=== PATIENT | female | born 1950 | race African-American/Black ===

== ENCOUNTER 2017-07-29 16:22 | Observation (INO) | payer MEDICARE, MEDICAID ==
[2017-07-29] MEDS ORDERED: Aspirin Low Dose CHEW TAB* 81 MG PO ONE (16:42)
--- NOTE | 2017-07-29 17:12 | RAD ---
Indication: LEFT chest pain, shortness of breath. Comparison: March 07, 2017 chest radiograph and January 09, 2017 Technique: Upright AP 1650 hours Report: No pulmonary infiltrate, focal pulmonary lesion, pleural effusion, pneumothorax. The heart, pulmonary vasculature, and mediastinal contours are unremarkable. Thoracic degenerative spondylosis with prominent RIGHT side vertebral endplate osteophytes. IMPRESSION: No evidence for acute intrathoracic disease.
[2017-07-29 17:45] LABS: Hematocrit 40 % (35-47); Hemoglobin 13.4 g/dl (12.0-16.0); Mean Corpuscular HGB Conc 33 g/dl (31-36); Mean Corpuscular Hemoglobin 27 pg (27-31); Mean Corpuscular Volume 81 fL (80-97); Mean Platelet Volume 8 um3 (7.4-10.4); Red Blood Count 5.01 10^6/ul (4.0-5.4); Red Cell Distribution Width 15 % (10.5-15); White Blood Count 23.3 10^3/ul (3.5-10.8)
[2017-07-29 17:51] LABS: Add Diff/Slide Review? Slide Review Added; Comments Flag Yes
[2017-07-29 18:01] LABS: Albumin 3.8 g/dL (3.2-5.2); BUN/Creatinine Ratio 14.9 (8-20); Calcium 9.1 mg/dL (8.6-10.3); EGFR African American 83.5 (>60); EGFR Non-African American 64.9 (>60); Globulin 2.8 g/dL (2-4); Potassium 3.7 mmol/L (3.5-5.0); Total Bilirubin 0.3 mg/dL (0.2-1.0); Total Protein 6.6 g/dL (6.4-8.9)
[2017-07-29] MEDS ORDERED: Nitroglycerin TAB 0.4 MG* 0.4 MG TAB SL ONE (18:33)
[2017-07-29] MEDS ORDERED: Iohexol 350* (CONTRAST) 500 ML MDV IV ONE (18:58)
--- NOTE | 2017-07-29 19:44 | RAD ---
INDICATION: LEFT chest pain, shortness of breath. History of leukemia. Assess for pulmonary embolism. COMPARISON: July 29, 2017 chest radiograph and January 09, 2017 CT. TECHNIQUE: Multidetector CT images were obtained from the lung apices to the upper abdomen with 83 mL Omnipaque 350 IV contrast. Pulmonary angiogram protocol. Multiplanar reformation including with maximum intensity projection. REPORT: Mild bilateral subsegmental atelectasis. Negative for focal pulmonary lesions or pleural effusions. Negative for pneumothorax. 1.1 cm short axis subcarinal lymph node without change. Additional smaller mediastinal and hilar lymph nodes. Bilateral hilar lymph nodes measuring up to 1.6 cm short axis on the RIGHT and 1.1 cm short axis on the LEFT without significant change. Negative for cardiomegaly or pericardial effusion. Normal diameter thoracic aorta with mild atherosclerotic plaque. No filling defects are identified from the main to the subsegmental pulmonary arteries to indicate presence of a pulmonary embolism. Images through the upper abdomen demonstrate normal size spleen. No upper abdominal lymphadenopathy evident. No suspicious thoracic fracture or suspicious osseous lesions evident. IMPRESSION: 1. Negative for pulmonary embolism. 2. Mild bilateral subsegmental atelectasis. 3. Unchanged mildly enlarged subcarinal lymph node and bilateral axillary level lymph nodes.
[2017-07-29] MEDS ORDERED: Acetaminophen TAB* 325 MG PO PRN (20:26)
[2017-07-29] MEDS ORDERED: Morphine INJ* 4 MG/ML 1 ML CARPUJECT IV PRN (21:32)
[2017-07-29] MEDS ORDERED: Melatonin (NF) 3 MG TAB PO PRN (21:32)
[2017-07-29] MEDS ORDERED: Albuterol 2.5 MG/3 ML NEB.SOL* (0.083%) INH PRN (21:32)
[2017-07-29] MEDS ORDERED: Nicotine Inhaler* 10 MG AMP INH PRN (21:32)
[2017-07-29] MEDS ORDERED: traMADol TAB* 50 MG PO PRN (21:33)
[2017-07-29] MEDS ORDERED: Ondansetron INJ* 2 MG/ML VIAL IV PRN (21:33)
[2017-07-29] MEDS ORDERED: NS 0.9% 1000 ML* 1,000 ML IV SCH (21:45)
[2017-07-30] MEDS ORDERED: Potassium Chlor TAB* 20 MEQ TAB.ER PO ONE (05:12)
[2017-07-30 05:45] LABS: Hematocrit 38 % (35-47); Hemoglobin 12.4 g/dl (12.0-16.0); Mean Corpuscular HGB Conc 33 g/dl (31-36); Mean Corpuscular Hemoglobin 26 pg (27-31); Mean Corpuscular Volume 80 fL (80-97); Mean Platelet Volume 8 um3 (7.4-10.4); Red Blood Count 4.75 10^6/ul (4.0-5.4); Red Cell Distribution Width 15 % (10.5-15); White Blood Count 17.8 10^3/ul (3.5-10.8)
[2017-07-30 05:50] LABS: Comments Flag Yes
[2017-07-30 05:51] LABS: Add Diff/Slide Review? Slide Review Added
[2017-07-30] MEDS ORDERED: Omeprazole CAP* 20 MG PO SCH (06:00)
[2017-07-30 06:03] LABS: Magnesium 1.9 mg/dL (1.9-2.7)
[2017-07-30 06:51] LABS: Eosinophils % 1 % (0-6); Neutrophil % 32 % (38-83); RBC Morphology Normal (Normal); Reactive Lymph % 19 % (0-6)
[2017-07-30 06:52] LABS: EBV Response NO
[2017-07-30 06:56] LABS: Manual Entry Verification CAR0052; Mono Internal Control QC Line Present
--- NOTE | 2017-07-30 07:31 | HP ---
H&P (Free Text) History and Physical: PCP: Mac Alvarez MD Date/Time of Evaluation: 07/29/20172024 CC: chest pain HPI: Mrs Morgan is a 66YO female HX leukemia, HTN, & asthma who awoke this AM due to moderate non-exertional sharp L shoulder pain radiating into the central chest associated wtih SOB, nausea without vomiting, sweats, palpitations, and light-headedness. She denies F/C, cough, congestion, injury, or change in activity. She refused her families encouragement to come for evaluation for several hours before finally conceding. Currently she denies symptoms. She denies exacerbating/alleviating factors. PMedHx leukemia asthma HTN Ambulatory Orders Albuterol HFA INHALER* [Ventolin HFA Inhaler*] 1 - 2 puff INH Q4H PRN #1 mdi [place] Inhaler 2 puff INH DAILY 07/29/17 traMADol TAB* [Ultram*] 50 mg PO Q6HR PRN 07/29/17 Allergies No Known Allergies Allergy (Verified 03/07/17 07:45) PSurgHx R rotator cuff repair L ankle surgery R ACL repair SocHx: 1/4PPD cigarettes, 1/2 pint liquor weekly, denies recreational drugs; lives with ; full code status FamHx: Mother: alive in her 90s; Father: passed in his 80s of uncertain cause ROS: as above, otherwise reviewed and all were negative Constitutional: NAD, normally developed, obese black female vitals: Vital Signs Temp 36.4 C 07/30/17 03:05 Pulse 58 07/30/17 03:05 Resp 16 07/30/17 03:05 BP 132/56 07/30/17 03:05 Pulse Ox 99 07/30/17 03:05 Intake & Output 07/29/17 07/29/17 07/30/17 11:59 23:59 11:59 Intake Total 0 Output Total 0 Balance 0 Weight 106.458 kg Intake: Oral 0 Output: Urine 0 Other: # Bowel Movements 0 HEENM: atraumatic; sclera/conjunctiva: non-icteric/clear; hearing: clinically intact; oropharynx: clear, mucosa moist Neck: soft tissue: non-tender; thyroid: normal Pulmonary: clear to auscultation bilaterally, good aeration, no accessory muscle use CV: RR/RR, normal S1S2, no carotid bruit, no jugular venous distention, 2+ B DP/ PT, trace BLE edema Abdominal: soft, non-distended, non-tender, no rebound/guarding/rigidity, normoactive bowel sounds, no hepatosplenomegaly or masses, no costovertebral angle tenderness Musculoskeletal: general: grossly intact, no palpable tenderness Integumental: normal appearance and texture of exposed skin Psychiatric orientation: AA&O to PPS affect: calm mood: cooperative eye contact: fair content: mostly reliable responses: not forthcoming insight: fair to poor Testing: Lab Results 07/29/17 07/29/17 07/29/17 Range/Units 17:36 17:36 17:36 WBC 23.3 H (3.5-10.8) 10^3/ul RBC 5.01 (4.0-5.4) 10^6/ul Hgb 13.4 (12.0-16.0) g/dl Hct 40 (35-47) % MCV 81 (80-97) fL MCH 27 (27-31) pg MCHC 33 (31-36) g/dl RDW 15 (10.5-15) % Plt Count 287 (150-450) 10^3/ul MPV 8 (7.4-10.4) um3 Neut % (Auto) 32.3 L (38-83) % Lymph % (Auto) 60.5 H (25-47) % Costilla % (Auto) 5.7 (1-9) % Eos % (Auto) 1.1 (0-6) % Baso % (Auto) 0.4 (0-2) % Absolute Neuts (auto) 7.5 (1.5-7.7) 10^3/ul Absolute Lymphs (auto) 14.1 H (1.0-4.8) 10^3/ul Absolute Monos (auto) 1.3 H (0-0.8) 10^3/ul Absolute Eos (auto) 0.2 (0-0.6) 10^3/ul Absolute Basos (auto) 0.1 (0-0.2) 10^3/ul Absolute Nucleated RBC 0.03 10^3/ul Neutrophils % (38-83) % Lymphocytes % (25-47) % Reactive Lymphs % (0-6) % Monocytes % (0-13) % Eosinophils % (0-6) % Nucleated RBC % 0.1 Normal RBC Morphology (Normal) Sodium 138 (133-145) mmol/L Potassium 3.7 (3.5-5.0) mmol/L Chloride 105 (101-111) mmol/L Carbon Dioxide 26 (22-32) mmol/L Anion Gap 7 (2-11) mmol/L BUN 13 (6-24) mg/dL Creatinine 0.87 (0.51-0.95) mg/dL Est GFR ( Amer) 83.5 (>60) Est GFR (Non-Af Amer) 64.9 (>60) BUN/Creatinine Ratio 14.9 (8-20) Glucose 106 H (70-100) mg/dL Lactic Acid 0.7 (0.5-2.0) mmol/L Calcium 9.1 (8.6-10.3) mg/dL Magnesium (1.9-2.7) mg/dL Total Bilirubin 0.30 (0.2-1.0) mg/dL AST 13 (13-39) U/L ALT 5 L (7-52) U/L Alkaline Phosphatase 115 H (34-104) U/L Troponin I 0.00 (<0.04) ng/mL Total Protein 6.6 (6.4-8.9) g/dL Albumin 3.8 (3.2-5.2) g/dL Globulin 2.8 (2-4) g/dL Albumin/Globulin Ratio 1.4 (1-3) Monoscreen (Negative) 07/29/17 07/30/17 07/30/17 Range/Units 20:00 04:49 04:49 WBC 17.8 H (3.5-10.8) 10^3/ul RBC 4.75 (4.0-5.4) 10^6/ul Hgb 12.4 (12.0-16.0) g/dl Hct 38 (35-47) % MCV 80 (80-97) fL MCH 26 L (27-31) pg MCHC 33 (31-36) g/dl RDW 15 (10.5-15) % Plt Count 250 (150-450) 10^3/ul MPV 8 (7.4-10.4) um3 Neut % (Auto) 31.9 L (38-83) % Lymph % (Auto) 60.9 H (25-47) % Costilla % (Auto) 5.7 (1-9) % Eos % (Auto) 1.3 (0-6) % Baso % (Auto) 0.2 (0-2) % Absolute Neuts (auto) 5.7 (1.5-7.7) 10^3/ul Absolute Lymphs (auto) 10.9 H (1.0-4.8) 10^3/ul Absolute Monos (auto) 1.0 H (0-0.8) 10^3/ul Absolute Eos (auto) 0.2 (0-0.6) 10^3/ul Absolute Basos (auto) 0 (0-0.2) 10^3/ul Absolute Nucleated RBC 0.01 10^3/ul Neutrophils % 32 L (38-83) % Lymphocytes % 44 (25-47) % Reactive Lymphs % 19 H (0-6) % Monocytes % 4 (0-13) % Eosinophils % 1 (0-6) % Nucleated RBC % 0.1 Normal RBC Morphology Normal (Normal) Sodium (133-145) mmol/L Potassium (3.5-5.0) mmol/L Chloride (101-111) mmol/L Carbon Dioxide (22-32) mmol/L Anion Gap (2-11) mmol/L BUN (6-24) mg/dL Creatinine (0.51-0.95) mg/dL Est GFR ( Amer) (>60) Est GFR (Non-Af Amer) (>60) BUN/Creatinine Ratio (8-20) Glucose (70-100) mg/dL Lactic Acid (0.5-2.0) mmol/L Calcium (8.6-10.3) mg/dL Magnesium 1.9 (1.9-2.7) mg/dL Total Bilirubin (0.2-1.0) mg/dL AST (13-39) U/L ALT (7-52) U/L Alkaline Phosphatase (34-104) U/L Troponin I 0.00 0.00 (<0.04) ng/mL Total Protein (6.4-8.9) g/dL Albumin (3.2-5.2) g/dL Globulin (2-4) g/dL Albumin/Globulin Ratio (1-3) Monoscreen Negative (Negative) ECG, personally reviewed: NSR rate 76, no ischemia CXR, personally reviewed: IMPRESSION: No evidence for acute intrathoracic disease. CTA chest, personally reviewed: IMPRESSION: 1. Negative for pulmonary embolism. 2. Mild bilateral subsegmental atelectasis. 3. Unchanged mildly enlarged subcarinal lymph node and bilateral axillary level lymph nodes. Impression: 66F chest pain for r/o ACS DIAGNOSIS & PLAN Primary chest pain r/o ACS : aspirin : telemetry : supplemental oxygen : trend troponin : chemical NST in AM : supportive care : consider cardiology consult pending above results Secondary leukemia : continue outpatient follow up asthma : PRN albuterol HTN : review meds once reconciled Admission Rational: CDU observation for r/o ACS DVTp: heparin SQ Code Status: full HCP:
[2017-07-30] MEDS ORDERED: Aspirin EC Low Dose* 81 MG TAB.EC PO SCH (09:00)
[2017-07-30] MEDS ORDERED: Regadenoson* 0.4 MG/5 ML SYRINGE ONE (09:31)
--- NOTE | 2017-07-30 11:01 | PN ---
Subjective Date of Service: 07/30/17 Interval History: Patient seen and examined at bedside. She denies any further CP or left shoulder pain overnight or this morning until after her stress test. She notes that she has both left and right shoulder discomfort after having to lay with her arms above her head. She has never had pain like this before. She can localize the pain. She reports lifting and bringing down a heavy box from her closet. No hx of chemotherapy or exposure to cardiotoxic medications. Denies any other complaints, other than feeling hungry. Family History: Unchanged from Admission Social History: Unchanged from Admission Past Medical History: Unchanged from Admission Objective Active Medications: Acetaminophen (Tylenol Tab*) 650 mg PO Q6H PRN PRN Reason: FEVER/PAIN Albuterol (Ventolin 2.5 Mg/3 Ml Neb.Leonie*) 2.5 mg INH Q2H PRN PRN Reason: SOB/WHEEZING Aspirin (Aspirin Ec Low Dose*) 81 mg PO DAILY [facility] Last Admin: 07/30/17 08:41 Dose: 81 mg Heparin Sodium (Porcine) (Heparin Vial(*)) 5,000 units SUBCUT Q8HR [facility] Sodium Chloride (Ns 0.9% 1000 Ml*) 1,000 mls @ 50 mls/hr IV PER RATE [facility] Last Admin: 07/30/17 01:12 Dose: 50 mls/hr Melatonin (Melatonin (Nf)) 3 mg PO BEDTIME PRN; Protocol PRN Reason: Sleep Morphine Sulfate (Morphine Inj (Syringe)*) 2 mg IV Q4H PRN PRN Reason: PAIN - MILD Nicotine (Nicotine Inhaler*) 10 mg INH Q2H PRN PRN Reason: CRAVING Omeprazole (Prilosec Cap*) 20 mg PO DAILY@0600 [facility] Last Admin: 07/30/17 05:52 Dose: 20 mg Ondansetron HCl (Zofran Inj*) 4 mg IV Q6H PRN PRN Reason: NAUSEA Tramadol HCl (Ultram*) 50 mg PO Q6H PRN PRN Reason: PAIN Last Admin: 07/29/17 22:50 Dose: 50 mg Vital Signs 07/29/17 07/29/17 07/29/17 20:30 21:11 21:53 Temperature 97.7 F Pulse Rate 61 68 Respiratory 20 20 22 Rate Blood Pressure 136/100 144/66 (mmHg) O2 Sat by Pulse 96 99 Oximetry 07/29/17 07/30/17 07/30/17 22:50 00:50 03:05 Temperature 97.5 F Pulse Rate 58 Respiratory 18 20 16 Rate Blood Pressure 132/56 (mmHg) O2 Sat by Pulse 99 Oximetry 07/30/17 07:15 Temperature 97.2 F Pulse Rate 58 Respiratory 16 Rate Blood Pressure 134/62 (mmHg) O2 Sat by Pulse 100 Oximetry Oxygen Devices in Use Now: None Appearance: Pleasant, WDWN, female, lying in bed, NAD Eyes: No Scleral Icterus Ears/Nose/Mouth/Throat: Clear Oropharnyx, Mucous Membranes Moist Neck: NL Appearance and Movements; NL JVP Respiratory: Symmetrical Chest Expansion and Respiratory Effort, Clear to Auscultation Cardiovascular: NL Sounds; No Murmurs; No JVD, RRR, - - reproducible pain with palpation on the left chest wall Abdominal: NL Sounds; No Tenderness; No Distention Extremities: No Edema, No Clubbing, Cyanosis Skin: No Rash or Ulcers Neurological: Alert and Oriented x 3, NL Muscle Strength and Tone Lines/Tubes/Other Access: Clean, Dry and Intact Peripheral IV Nutrition: Taking PO's Result Diagrams: 07/30/17 04:49 07/29/17 17:36 Diagnostic Imaging: CTA Chest: IMPRESSION: 1. Negative for pulmonary embolism. 2. Mild bilateral subsegmental atelectasis. 3. Unchanged mildly enlarged subcarinal lymph node and bilateral axillary level lymph nodes. Assess/Plan/Problems-Billing Assessment: - Patient Problems (1) Chest pain Code(s): R07.9 - CHEST PAIN, UNSPECIFIED Comment: Suspect musculoskeletal causes, given reproducible pain Negative troponins x 3 No ischemic changes seen on EKG No ischemic changes by EKG criteria on stress portion Low risk nuclear imaging with normal LV function and normal wall motion seen. (2) Leukemia Code(s): C95.90 - LEUKEMIA, UNSPECIFIED NOT HAVING ACHIEVED REMISSION Comment : No hx of chemo, per patient Cont outpatient f/u with Dr Bryant (3) HTN (hypertension) Code(s): I10 - ESSENTIAL (PRIMARY) HYPERTENSION Comment: Normotensive Not on home medications (4) Asthma Code(s): J45.909 - UNSPECIFIED ASTHMA, UNCOMPLICATED Comment: Cont home inhalers (5) DVT prophylaxis Comment: SQ heparin Status and Disposition: OBV admit. Dc to home.
--- NOTE | 2017-07-30 11:01 | RAD ---
Edited for charges. INDICATION: Chest pain, shortness of breath, multiple risk factors for coronary artery disease. COMPARISON: No relevant prior exams available on the [facility] PACS for comparison. TECHNIQUE: 10.570 mCi of Tc-99m Myoview were administered IV. SPECT images of the heart were obtained. Later on the same day. Under the direction of Dr. Shea, the patient was given an IV injection of a pharmacologic stress agent. Subsequently, the patient was given an IV injection of 25.780 mCi Tc-99m Myoview. SPECT images of the heart were obtained and a gated wall motion study was performed. FINDINGS: Gated wall motion images were obtained at stress and demonstrate wall motion to be within normal limits. The calculated left ventricular ejection fraction is 68 % at stress. Estimated LEFT ventricular end diastolic volume is 100 mL. TID 1.04. Based on review of the attenuation corrected and non corrected images the distribution of radiopharmaceutical within the myocardium on the stress and rest images is within normal limits. No suspicious fixed or reversible regions of hypoperfusion evident. IMPRESSION: 1. No evidence for stress induced myocardial ischemia or presence of an infarct. 2. Normal left ventricular wall motion and ejection fraction. ASSESSMENT: LOW RISK. Based on imaging criteria from ACC/AHA 2002 Guideline Update for the Management of Patients With Chronic Stable Angina Table 23. Noninvasive Risk Stratification. MTDD
[2017-07-30 14:41] VITALS: BP 130/57
[2017-07-30] MEDS ORDERED: Heparin VIAL(*) 5000 UNITS/ML VIAL (FIVE THOUSAND) SUBCUT SCH (18:00)
--- NOTE | 2017-07-31 06:27 | DS ---
CC: Dr. Alvarez; Dr. Fili Bryant * MEDICINE DISCHARGE SUMMARY: DATE OF ADMISSION: 07/29/17 DATE OF DISCHARGE: 07/30/17 PRIMARY CARE PROVIDER: Dr. Rhona Alvarez. PROVIDER: Florentin Oakley NP ATTENDING PHYSICIAN: Dr. Clarissa Roman * (as dictated by Florentin Oakley NP). PRIMARY DISCHARGE DIAGNOSIS: Chest pain. SECONDARY DISCHARGE DIAGNOSES: 1. Leukemia. 2. Hypertension. 3. Asthma. HOME MEDICATIONS AT DISCHARGE: 1. Tramadol 50 mg q.6 hours p.r.n. 2. Albuterol inhaler 1 to 2 puffs inhaled q.4 hours p.r.n. HOSPITAL COURSE OF STAY: For full details, please refer to the H and P provided by Dr. Montoya. In summary, Ms. Morgan is a 66-year-old female, who presented to the hospital with concern for chest pain. The patient reports that the pain started in the left shoulder and radiated into her central chest and was accompanied by shortness of breath and nausea. The patient was evaluated in the ER and brought in for further observation and stress testing. She had no further episodes of pain here in the hospital. The patient states that she had been chest pain free until coming back from her stress test when she noticed that when she had to put her arms over her head for the nuclear portion that her chest and her arms started hurting. She was able to localize the pain and I was able to reproduce the pain with palpation. In discussion with the patient, it appears that she had been doing some cleaning and had lifted up heavy box from the top shelf over her head, which may have contributed to a pulled muscle. The patient's nuclear portion of her scan showed a low-risk assessment and no evidence for stress-induced myocardial ischemia or presence of an infarct. The patient has a normal left ventricular wall motion and ejection fraction. She had a CTA completed here, which was negative for pulmonary embolism and showed mild bilateral subsegmental atelectasis. Her EKG shows no ischemic changes and the patient has been in stable condition throughout her stay. The patient is to follow up as an outpatient with her primary care provider, also with Dr. Bryant in regards to her leukemia. The patient has not yet started treatment for this, but is being followed by Dr. Bryant. DIET: Heart-healthy diet. ACTIVITY: As tolerated. CONDITION: Stable. DISPOSITION: To home. TIME SPENT: Time spent on this discharge was approximately 35 minutes. Again, this is only a brief summary of the patient's hospital course of stay. For full details, please refer to the full medical record. If you have any further questions or need further assistance, please feel free to contact me at . FLORENTIN OAKLEY NP [phone]/CPS #: [id number] GISEL
--- NOTE | 2017-08-02 08:50 | ED ---
Alexander Rueda Thomas, scribed for Tyree Eden MD on 07/29/17 at 1703 . HPI Chest Pain - HPI Summary HPI Summary: The pt is a 66 y/o F accompanied by her and presenting to the ED c/o intermittent L-sided CP that began yesterday at 12:00. The pain is aggravated by bending upward and is alleviated by nothing. The pain radiates upward into her neck. The patient rates the pain 9/10. The patient has treated the pain with Tramadol LEARNING ADMINISTRATOR. She does have reproducible central CP, but this is a different pain. Pt additionally c/o mild painful breathing, mild SOB, sweats, and painful swallowing. Pt denies fevers, chills, and cough. PMHx: asthma, leukemia. PSHx: musculoskeletal repairs. SHx: smoking, rare alcohol use, no illicit drug use. FHx: HTN. She sees Dr. Bryant for her leukemia. She last saw him three weeks ago. - History of Current Complaint Chief Complaint: EDChestPainROMI Time Seen by Provider: 07/29/17 16:40 Hx Obtained From: Patient, Family/Procurement Engineer - is present Onset/Duration: Started Days Ago - onset yesterday at 12:0, Still Present Time of Onset: 12:00 Timing: Constant Pain Intensity: 9 Pain Scale Used: 0-10 Numeric Chest Pain Location: Discrete at: - L-sided Aggravating Factor(s): Other: - Bending upward Alleviating Factor(s): Nothing Associated Signs and Symptoms: Positive: Chest Pain, Shortness of Breath - mild , Other: - POS: mild painful breathing, sweats, painful swallowing. Negative: Fever, Chills, Cough Related History: Similar Episode/Dx as: - Patient has a PMHx of Leukemia - Allergy/Home Medications Allergies/Adverse Reactions: Allergies Allergy/AdvReac Type Severity Reaction Status Date / Time No Known Allergies Allergy Verified 03/07/17 07:45 PMH/Surg Hx/FS Hx/Imm Hx Previously Healthy: No Endocrine/Hematology History: Denies: Hx Diabetes Cardiovascular History: Denies: Hx Hypertension Respiratory History: Reports: Hx Asthma GI History: Reports: Hx Gastroesophageal Reflux Disease - OCCASIONAL Musculoskeletal History: Reports: Hx Arthritis - KNEES Sensory History: Denies: Hx Contacts or Glasses, Hx Hearing Aid Opthamlomology History: Denies: Hx Contacts or Glasses - Cancer History Cancer Type, Location and Year: leukemia - Surgical History Surgery Procedure, Year, and Place: RIGHT ROTATOR CUFF REPA[place] [facility] RIGHT ANKLE ORIF 1983. RIGHT KNEE SCOPING [place] [facility] TUBAL LIGATION 1973 Hx Anesthesia Reactions: No Infectious Disease History: No Infectious Disease History: Denies: Traveled Outside the [place] in Last 30 Days - Family History Known Family History: Positive: Hypertension - Social History Alcohol Use: Rare Alcohol Amount: 1 BEER/DAY Substance Use Type: Reports: None Smoking Status (MU): Current Every Day Smoker Type: Cigarettes Amount Used/How Often: 4-5 CIGS/DAY Have You Smoked in the Last Year: Yes Review of Systems Positive: Other - POS: sweats. Negative: Fever, Chills Negative: Erythema - eyes Positive: Other - POS: painful swallowing. Negative: Sore Throat Positive: Chest Pain - intermittent L-sided, Other - POS: unrelated reproducible CP Positive: Shortness Of Breath - mild, Other - POS: mild painful breathing. Negative: Cough Negative: Abdominal Pain, Vomiting, Nausea Negative: dysuria, hematuria Negative: Myalgia, Edema - leg Negative: Rash Neurological: Other - NEG: dizziness All Other Systems Reviewed And Are Negative: Yes Physical Exam Vital Signs On Initial Exam: Initial Vitals Temp Pulse Resp BP Pulse Ox 97.2 F 77 18 140/60 97 07/29/17 16:30 07/29/17 16:30 07/29/17 16:30 07/29/17 16:30 07/29/17 16:30 Diagnostics - Vital Signs Vital Signs Temp Pulse Resp BP Pulse Ox 07/29/17 16:30 97.2 F 77 18 140/60 97 - Laboratory Result Diagrams: 07/29/17 17:36 07/29/17 17:36 Lab Statement: Any lab studies that have been ordered have been reviewed, and results considered in the medical decision making process. - Radiology CXR Xray Interpretation: No Acute Changes - CXR shows no evidence for acute intrathoracic disease. ED physician has reviewed this report and agrees. Radiology Interpretation Completed By: Radiologist - CT CTA Chest CT Interpretation: Positive (See Comments) - CTA Chest shows 1. Negative for pulmonary embolism. 2. Mild bilateral subsegmental atelectasis. 3. Unchanged mildly enlarged subcarinal lymph node and bilateral axillary level lymph nodes. ED physician has reviewed this report and agrees. CT Interpretation Completed By: Radiologist - EKG 16:35 Cardiac Rate: NL - 76 BPM EKG Interpretation: Sinus rhythm. No STEMI. Chest Pain Course/Dx - Course Assessment/Plan: The pt is a 66 y/o F c/o intermittent L-sided CP that began yesterday at 12:00. The pain is aggravated by bending upward and is alleviated by nothing. The pain radiates upward into her neck. She does have reproducible central CP, but this is a different pain. Pt additionally c/o mild painful breathing, mild SOB, sweats, and painful swallowing. Pt denies fevers, chills, and cough. PMHx: leukemia. SHx: smoking. In the ED course the patient was given ASA. EKG shows sinus rhythm with no STEMI. Bloodwork shows WBC 23.3, absolute Neuts 14.1, absolute Monos 1.3. CXR shows no evidence for acute intrathoracic disease. CTA Chest shows 1. Negative for pulmonary embolism. 2. Mild bilateral subsegmental atelectasis. 3. Unchanged mildly enlarged subcarinal lymph node and bilateral axillary level lymph nodes. ED physician has reviewed this report and agrees. I consulted with Dr. Montoya, lamination builder, who accepts the patient for [place] [facility] [place] 20:15. She is diagnosed with chest pain unspecified. - Diagnoses Provider Diagnoses: Chest pain, unspecified - Provider Notifications Discussed Care Of Patient With: Lenny Montoya Time Discussed With Above Provider: 20:15 Instructed by Provider To: Other - I consulted with Dr. Montoya, hospitalist , who accepts the patient for admission [place] [facility] Discharge - Discharge Plan Condition: Fair Disposition: ADMITTED TO [facility] Discharge Disposition Comment: By Dr. Montoya at 20:15 The documentation as recorded by the Alexander del rio Thomas accurately reflects the service I personally performed and the decisions made by me, Tyree Eden MD.
== END 2017-07-30 14:41 | disposition home or self-care (01) ==
LOC: ED 16:22 → MEDTELE 20:24
PROVIDERS: ADMIT Hospitalist; ATTEND Internal Medicine
DX: R07.89 Other chest pain (principal); R06.02 Shortness of breath; R00.2 Palpitations; R42 Dizziness and giddiness; R11.0 Nausea; J45.909 Unspecified asthma, uncomplicated; F17.210 Nicotine dependence, cigarettes, uncomplicated; C95.90 Leukemia, unspecified not having achieved remission; I10 Essential (primary) hypertension
CPT/HCPCS: 36415; 71010; 71275; 78452; 80053; 83605; 83735; 84484; 85025; 85730; 86308; 93005; 93017; 96360; 96361; 99283; A9270-GY; A9502; G0378; J2785; Q9967

== ENCOUNTER 2017-12-06 20:34 | Emergency (ER) | payer MEDICARE, MEDICAID ==
--- NOTE | 2017-12-06 21:48 | RAD ---
Indication: Right knee injury. 4 views of the right knee are reviewed. Degenerative changes of the patellofemoral joint is noted. There is joint space narrowing in the medial compartment of the left knee. There is deformity is noted. Osteophyte formation is noted. No joint effusion is identified. IMPRESSION: Degenerative changes medial compartment of the right knee as well as patellofemoral joint arthritis.
--- NOTE | 2017-12-06 21:49 | RAD ---
Indication: Right shoulder injury. 5 views of the right shoulder demonstrates a fracture through the surgical neck of the right humerus. Mild impaction is noted. AC joint arthritis is noted. IMPRESSION: Fracture through the surgical neck of the right humerus.
[2017-12-06] MEDS ORDERED: oxyCODONE/Acetamin 5/325 MG* TAB PO ONE (22:53)
--- NOTE | 2017-12-06 23:03 | ED ---
Adult Trauma - HPI Summary HPI Summary: 66F presents with right shoulder and knee pain after fall. She states that she slipped on some ice and landed on her right side. She denies any head injury. She denies any LOC or neck pain. She denies any chest pain or SOB. She denies any hip pain or abdominal pain. She was able to ambulate afterwards. She has history of leukemia and takes tramadol daily. She denies any numbness or tingling currently but she did have some prior to arrival. She denies any previous injury to the area. She is right handed. She ambulate without assistance at home. she sees dr chairez for ortho. - History of Current Complaint Chief Complaint: EDShoulderClaAliciaj Stated Complaint: RT SHOULDER/KNEE INJURY Time Seen by Provider: 12/06/17 22:40 Pain Intensity: 10 - Allergy/Home Medications Allergies/Adverse Reactions: Allergies Allergy/AdvReac Type Severity Reaction Status Date / Time No Known Allergies Allergy Verified 03/07/17 07:45 PMH/Surg Hx/FS Hx/Imm Hx Endocrine/Hematology History: Denies: Hx Diabetes Cardiovascular History: Reports: Hx Angina Denies: Hx Coronary Artery Disease, Hx Hypercholesterolemia, Hx Hypertension , Hx Myocardial Infarction, Hx Valvular Heart Disease Respiratory History: Reports: Hx Asthma GI History: Reports: Hx Gastroesophageal Reflux Disease - OCCASIONAL Musculoskeletal History: Reports: Hx Arthritis - KNEES Sensory History: Denies: Hx Contacts or Glasses, Hx Hearing Aid Opthamlomology History: Denies: Hx Contacts or Glasses - Cancer History Cancer Type, Location and Year: leukemia - Surgical History Surgery Procedure, Year, and Place[place] [facility] [place]KLE [place]. [place] [facility] [place] TUBAL LIGATION 1973 Hx Anesthesia Reactions: No Infectious Disease History: No Infectious Disease History: Denies: Traveled Outside the [place] in Last 30 Days - Family History Known Family History: Positive: Hypertension - Social History Alcohol Use: Rare Alcohol Amount: 1 BEER/DAY Substance Use Type: Reports: None Substance Use Comment - Amount & Last Used: 1-2 times per week, not certain of last use. Smoking Status (MU): Current Every Day Smoker Type: Cigarettes Amount Used/How Often: 4-5 CIGS/DAY Have You Smoked in the Last Year: Yes Review of Systems Negative: Fever Negative: Chest Pain Negative: Shortness Of Breath Positive: Myalgia - right shoulder and knee pain All Other Systems Reviewed And Are Negative: Yes Physical Exam Triage Information Reviewed: Yes Vital Signs On Initial Exam: Initial Vitals Temp Pulse Resp BP Pulse Ox 98.2 F 86 22 160/78 98 12/06/17 20:49 12/06/17 20:49 12/06/17 20:49 12/06/17 20:49 12/06/17 20:49 Vital Signs Reviewed: Yes Appearance: Positive: Well-Appearing Skin: Positive: Warm, Dry Head/Face: Positive: Normal Head/Face Inspection Eyes: Positive: Normal, EOMI, NOHEMI, Conjunctiva Clear ENT: Positive: Normal ENT inspection, Pharynx normal, TMs normal Respiratory/Lung Sounds: Positive: Clear to Auscultation, Breath Sounds Present Cardiovascular: Positive: Normal, RRR Abdomen Description: Positive: Nontender, Soft Bowel Sounds: Positive: Present Musculoskeletal: Positive: Limited @ - right shoulder and elbow, Other - good pulses, sensation grossly intact, capillary refill<2 secs, 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 - Radiology shoulder Xray Interpretation: Positive (See Comments) - IMPRESSION: Fracture through the surgical neck of the right humerus. Radiology Interpretation Completed By: Radiologist knee Xray Interpretation: No Acute Changes Radiology Interpretation Completed By: Radiologist elbow Xray Interpretation: Positive (See Comments) - possible joint effusion Radiology Interpretation Completed By: ED Physician Adult Trauma Course/Dx - Course Course Of Treatment: 66F presents with right shoulder and knee pain after fall. She states that she slipped on some ice and landed on her right side. She denies any head injury. She denies any LOC or neck pain. She denies any chest pain or SOB. She denies any hip pain or abdominal pain. She was able to ambulate afterwards. She has history of leukemia and takes tramadol daily. She denies any numbness or tingling currently but she did have some prior to arrival. She denies any previous injury to the area. She is right handed. She ambulate without assistance at home. tenderness over right humerus and elbow , neurovascular intact. nontender right hip or neck. tenderness right knee. xray knee normal. xray shoulder humerus fracture. elbow xray read by me shows possible joint effusion. will be in sling anyways if does have radial head fracture. will discharge with oxycodone to supplement for break through pain. will have follow up with dr chairez who is her ortho. patient understand and agrees with plan. - Diagnoses Differential Diagnosis/HQI/PQRI: Positive: Fracture, Sprain, Strain Provider Diagnoses: Fall, Right knee injury, Fracture of humerus, right, closed, Right elbow pain Discharge - Discharge Plan Condition: Good Disposition: HOME Prescriptions: oxyCODONE TAB* [Roxycodone TAB 5 mg*] 5 mg PO Q4H PRN #24 tab MDD 6 PRN Reason: Pain Patient Education Materials: Proximal Humerus Fracture (ED) Referrals: Rhona Alvarez MD [Primary Care Provider] - Karl Chairez MD [Medical Doctor] - Additional Instructions: Use normal pain medication, take Tylenol every 6 hours and use oxycodone every 4 -6 hours for break through pain Might possible have elbow fracture in addition to humerus but treatment is the same Keep sling on area Follow up with ortho Ice, elevate Return to ED if develop any new or worsening symptoms
[2017-12-06] MEDS ORDERED: Morphine INJ* 4 MG/ML 1 ML CARPUJECT IM ONE (23:43)
[2017-12-07 00:29] VITALS: BP 152/78
--- NOTE | 2017-12-07 07:38 | RAD ---
INDICATION: Right elbow injury COMPARISON: None TECHNIQUE: AP, lateral, and oblique views were obtained. FINDINGS: There is no acute fracture. There is mild degenerative spurring. The fat pads are not displaced. The remaining soft tissues are normal. IMPRESSION: NO ACUTE FRACTURE.
== END 2017-12-07 00:28 | disposition home or self-care (01) ==
LOC: ED 20:34
DX: S89.91XA Unspecified injury of right lower leg, initial encounter (principal); S42.301A Unspecified fracture of shaft of humerus, right arm, initial encounter for closed fracture; M25.561 Pain in right knee; F17.210 Nicotine dependence, cigarettes, uncomplicated; W19.XXXA Unspecified fall, initial encounter; Y92.9 Unspecified place or not applicable; M25.521 Pain in right elbow
CPT/HCPCS: 96372; 99283; A9270-GY; J2270

== ENCOUNTER 2022-07-21 17:39 | Inpatient (IN) ==
[2022-07-21 20:33] LABS: Hematocrit 45 % (35-47); Hemoglobin 14.5 g/dL (12.0-16.0); Mean Corpuscular HGB Conc 32 g/dL (31-36); Mean Corpuscular Hemoglobin 26 pg (27-31); Mean Corpuscular Volume 81 fL (80-97); Mean Platelet Volume 8.1 fL (7.4-10.4); Platelet Count 339 10^3/uL (150-450); Red Blood Count 5.58 10^6 /uL (3.70-4.87); Red Cell Distribution Width 15 % (10-15)
[2022-07-21 20:50] LABS: ABS Basophils 0.1 10^3/ul (0-0.2); ABS Eosinophils 0.2 10^3/ul (0-0.6); ABS Lymphocytes 12.7 10^3/ul (1.0-4.8); ABS Monocytes 1.3 10^3/ul (0-0.8); ABS Neutrophils 8.7 10^3/ul (1.5-7.7); Eosinophil % 0.9 %; Nucleated Red Blood Cells % 0.1; RBC Morphology Normal (Normal)
[2022-07-21 21:10] LABS: ALT 19 U/L (7-52); Albumin 4.2 g/dL (3.2-5.2); Albumin/Globulin Ratio 1.5 (1-3); Alkaline Phosphatase 120 U/L (35-149); Blood Urea Nitrogen 14 mg/dL (6-24); CO2 Carbon Dioxide 22 mmol/L (22-32); Calcium 9.3 mg/dL (8.6-10.3); Chloride 107 mmol/L (101-111); Cholesterol 206 mg/dL; Globulin 2.8 g/dL (2-4); Glucose 89 mg/dL (70-100); HDL Cholesterol 47.2 mg/dL; LDL Cholesterol 136 mg/dL; Sodium 136 mmol/L (135-145); Triglycerides 113 mg/dL; eGFR CKD-EPI 82.7 (>60)
[2022-07-21 21:12] LABS: Anion Gap 7 mmol/L (2-11)
[2022-07-21] MEDS ORDERED: Iohexol 350 (CONTRAST) 500 ML MDV IV ONE (21:23)
[2022-07-21] MEDS ORDERED: Iodixanol (CONTRAST) 320 MG/ML 100 ML SDV IV ONE (21:32)
[2022-07-21] MEDS ORDERED: Al Hydrox/Mg Hydrox/Simet LIQ 30 ML UDC PO PRN (23:02)
[2022-07-21 23:04] LABS: C Reactive Protein 8.87 mg/L (<8.01)
[2022-07-21] MEDS ORDERED: Albuterol HFA INHALER 8 gm MDI INH PRN (23:27)
[2022-07-22] MEDS: Enoxaparin 40 MG/0.4 ML SYR SUBCUT SCH ×2 (00:05→20:19)
[2022-07-22 00:57] LABS: Potassium Redraw 3.7 mmol/L (3.5-5.0)
[2022-07-23 07:01] LABS: Hematocrit 40 % (35-47); Hemoglobin 13.1 g/dL (12.0-16.0); Mean Corpuscular HGB Conc 33 g/dL (31-36); Mean Corpuscular Hemoglobin 26 pg (27-31); Mean Corpuscular Volume 80 fL (80-97); Mean Platelet Volume 7.6 fL (7.4-10.4); Platelet Count 302 10^3/uL (150-450); Red Blood Count 4.95 10^6 /uL (3.70-4.87); Red Cell Distribution Width 15 % (10-15); White Blood Count 14.9 10^3/uL (3.5-10.8)
[2022-07-23 07:44] LABS: Calcium 9.1 mg/dL (8.6-10.3); Potassium 4.3 mmol/L (3.5-5.0)
[2022-07-23 08:40] LABS: ABS Basophils 0.1 10^3/ul (0-0.2); ABS Eosinophils 0.2 10^3/ul (0-0.6); ABS Lymphocytes 9.2 10^3/ul (1.0-4.8); ABS Neutrophils 4.5 10^3/ul (1.5-7.7); Eosinophil % 1.2 %; Lymphocyte % 61.7 %; RBC Morphology Normal (Normal)
[2022-07-23] MEDS ORDERED: Magnesium Hydroxide LIQ 30 ML UDC PO PRN (08:53)
[2022-07-23] MEDS: Enoxaparin 40 MG/0.4 ML SYR SUBCUT SCH (20:42)
[2022-07-24 06:28] LABS: Hematocrit 41 % (35-47); Hemoglobin 13.1 g/dL (12.0-16.0); Mean Corpuscular HGB Conc 32 g/dL (31-36); Mean Corpuscular Hemoglobin 26 pg (27-31); Mean Corpuscular Volume 79 fL (80-97); Mean Platelet Volume 7.8 fL (7.4-10.4); Platelet Count 297 10^3/uL (150-450); Red Blood Count 5.12 10^6 /uL (3.70-4.87); Red Cell Distribution Width 15 % (10-15); White Blood Count 14.3 10^3/uL (3.5-10.8)
[2022-07-24 06:58] LABS: Calcium 9.2 mg/dL (8.6-10.3); Potassium 4.4 mmol/L (3.5-5.0)
[2022-07-24 07:02] LABS: ABS Eosinophils 0.2 10^3/ul (0-0.6); ABS Monocytes 1.1 10^3/ul (0-0.8); ABS Neutrophils 4.9 10^3/ul (1.5-7.7); Eosinophil % 1.5 %; Lymphocyte % 56.1 %; Nucleated Red Blood Cells % 0.2
[2022-07-24] MEDS: Enoxaparin 40 MG/0.4 ML SYR SUBCUT SCH (20:32)
[2022-07-25 06:07] LABS: Hematocrit 40 % (35-47); Mean Corpuscular HGB Conc 32 g/dL (31-36); Mean Corpuscular Hemoglobin 26 pg (27-31); Mean Corpuscular Volume 80 fL (80-97); Mean Platelet Volume 8.1 fL (7.4-10.4); Platelet Count 302 10^3/uL (150-450); Red Blood Count 5.05 10^6 /uL (3.70-4.87); Red Cell Distribution Width 15 % (10-15); White Blood Count 15.7 10^3/uL (3.5-10.8)
[2022-07-25 06:29] LABS: ABS Eosinophils 0.2 10^3/ul (0-0.6); ABS Lymphocytes 9.5 10^3/ul (1.0-4.8); Eosinophil % 1.4 %; Lymphocyte % 60.4 %; Nucleated Red Blood Cells % 0.1
[2022-07-25 06:36] LABS: Calcium 9.3 mg/dL (8.6-10.3); Potassium 4.2 mmol/L (3.5-5.0); eGFR CKD-EPI 88.2 (>60)
[2022-07-25] MEDS: Enoxaparin 40 MG/0.4 ML SYR SUBCUT SCH (20:54)
[2022-07-26 11:59] VITALS: BP 156/58
== END 2022-07-26 11:35 | disposition home or self-care (01) | DRG 65 ==
LOC: ED 17:39 → SUATTDRO 22:59 → MERGE 22:59 → EDHOLD 22:59 → MEDTELE 07-22 03:10 → SSU 07-22 03:17 → MEDTELE 07-24 14:22
PROVIDERS: ADMIT Internal Medicine; ATTEND Internal Medicine